=== PATIENT | female | born 2000 | race Two or more races ===

== ENCOUNTER 2018-05-22 20:51 | Emergency (ER) | payer OTHER ==
[~2018-05-22] VITALS: Ht 170.2 cm; Wt 93.0 kg
[2018-05-22] MEDS ORDERED: IV NORMAL SALINE 1000ML BAG 1,000 ML IV SCH (21:15)
--- NOTE | 2018-05-22 21:16 | PHYS DOC ---
Adult General Chief Complaint Chief Complaint: ABDOMINAL PAIN HPI HPI Patient is a 17-year-old female who presents with complaining of upper abdominal pain that started 2 days ago. Patient is 2 weeks . She indicates that pain was only mild initially but has progressively gotten worse and at its worst, was a 10 out of 10 but currently is a 7 out of 10. She indicates that she has had 2 episodes of vomiting. She states that at times the pain radiates into her back. Patient states the pain is worsened with walking and with palpation. She does indicate that symptoms are worsened with eating as well due to the nausea. Review of Systems Review of Systems Constitutional: Denies fever or chills [] Respiratory: Denies cough or shortness of breath [] Cardiovascular: Denies chest pain[] GI: Complains of upper abdominal pain with nausea and vomiting[] : Denies dysuria or hematuria [] Musculoskeletal: Admits to mid back pain[] I All other systems were reviewed and found to be within normal limits, except as documented in this note. Current Medications Current Medications Current Medications Medications (Trade) Dose Ordered Sig/Tami Start Time Stop Time Status Last Admin Dose Admin Info (CONTRAST GIVEN -- Rx MONITORING) 1 each PRN DAILY PRN 05/22/18 21:45 05/24/18 21:44 Iohexol (Omnipaque 300 Mg/ml) 75 ml 1X ONCE 05/22/18 21:45 05/22/18 21:46 DC 05/22/18 22:00 75 ML Ondansetron HCl (Zofran) 4 mg 1X ONCE 05/22/18 21:30 05/22/18 21:31 DC 05/22/18 21:30 4 MG Sodium Chloride 1,000 ml @ 1,000 mls/hr Q1H 05/22/18 21:15 05/22/18 22:14 DC 05/22/18 21:15 1,000 MLS/HR Allergies Allergies Allergies Coded Allergies Type Severity Reaction Last Updated Verified No Known Drug Allergies 05/22/18 No Physical Exam Physical Exam Constitutional: Well developed, well nourished, no acute distress, non-toxic appearance. [] HENT: Normocephalic, atraumatic, bilateral external ears normal, oropharynx moist, no oral exudates, nose normal. [] Eyes: PERRLA, EOMI, conjunctiva normal, no discharge. [] Neck: Normal range of motion, no tenderness, supple, no stridor. [] Cardiovascular:Heart rate regular rhythm, no murmur [] Lungs & Thorax: Bilateral breath sounds clear to auscultation [] Abdomen: Bowel sounds normal, soft, with upper abdominal tenderness. [] Skin: Warm, dry, no erythema, no rash. [] Extremities: No tenderness, no cyanosis, no clubbing, ROM intact, no edema. [] Neurologic: Alert and oriented X 3, normal motor function, normal sensory function, no focal deficits noted. [] Current Patient Data Vital Signs Vital Signs Date Time Temp Pulse Resp B/P (MAP) Pulse Ox O2 Delivery O2 Flow Rate FiO2 05/22/18 23:04 64 18 127/72 (90) 100 05/22/18 21:00 98.2 Room Air 98.2 Lab Values Laboratory Tests Test 05/22/18 21:02 05/22/18 21:03 05/22/18 21:25 05/22/18 21:52 POC Urine HCG, Qualitative Borderline hcg level Urine Collection Type Unknown Urine Color Yellow Urine Clarity Clear Urine pH 6.0 Urine Specific [place] 1.025 Urine Protein Negative mg/dL (NEG-TRACE) Urine Glucose (UA) Negative mg/dL (NEG) Urine Ketones (Stick) Negative mg/dL (NEG) Urine Blood Negative (NEG) Urine Nitrite Negative (NEG) Urine Bilirubin Negative (NEG) Urine Urobilinogen Dipstick 0.2 mg/dL (0.2 mg/dL) Urine Leukocyte Esterase Small (NEG) Urine RBC 0 /HPF (0-2) Urine WBC 1-4 /HPF (0-4) Urine Squamous Epithelial Cells Occ /LPF Urine Bacteria Few /HPF (0-FEW) Urine Mucus Mod /LPF White Blood Count 10.7 x10^3/uL (4.0-11.0) Red Blood Count 4.14 x10^6/uL (3.50-5.40) Hemoglobin 11.3 g/dL (12.0-15.5) L Hematocrit 34.3 % (36.0-47.0) L Mean Corpuscular Volume 83 fL (79-100) Mean Corpuscular Hemoglobin 27 pg (25-35) Mean Corpuscular Hemoglobin Concent 33 g/dL (31-37) Red Cell Distribution Width 14.9 % (11.5-14.5) H Platelet Count 299 x10^3/uL (140-400) Neutrophils (%) (Auto) 59 % (31-73) Lymphocytes (%) (Auto) 32 % (24-48) Monocytes (%) (Auto) 7 % (0-9) Eosinophils (%) (Auto) 2 % (0-3) Basophils (%) (Auto) 1 % (0-3) Neutrophils # (Auto) 6.2 x10^3uL (1.8-7.7) Lymphocytes # (Auto) 3.4 x10^3/uL (1.0-4.8) Monocytes # (Auto) 0.7 x10^3/uL (0.0-1.1) Eosinophils # (Auto) 0.2 x10^3/uL (0.0-0.7) Basophils # (Auto) 0.1 x10^3/uL (0.0-0.2) Sodium Level 137 mmol/L (136-145) Potassium Level 4.0 mmol/L (3.5-5.1) Chloride Level 104 mmol/L (98-107) Carbon Dioxide Level 25 mmol/L (21-32) Anion Gap 8 (6-14) Blood Urea Nitrogen 16 mg/dL (7-20) Creatinine 0.7 mg/dL (0.6-1.0) Estimated GFR (Cockcroft-Gault) 107.8 BUN/Creatinine Ratio 23 (6-20) H Glucose Level 90 mg/dL (70-99) Calcium Level 9.0 mg/dL (8.5-10.1) Total Bilirubin 0.1 mg/dL (0.2-1.0) L Aspartate Amino Transferase (AST) 15 U/L (15-37) Alanine Aminotransferase (ALT) 21 U/L (14-59) Alkaline Phosphatase 106 U/L (46-116) Total Protein 7.1 g/dL (6.4-8.2) Albumin 3.2 g/dL (3.4-5.0) L Albumin/Globulin Ratio 0.8 (1.0-1.7) L Lipase 131 U/L (73-393) Laboratory Tests 05/22/18 21:25 Laboratory Tests 05/22/18 21:52 EKG EKG [] Radiology/Procedures Radiology/Procedures [] Impressions: IMPRESSION: Heterogeneous uterus with probable fibroid in the fundus. No other focal abnormality seen in the abdomen or pelvis. Course & Med Decision Making Course & Med Decision Making Pertinent Labs and Imaging studies reviewed. (See chart for details) [] Dragon Disclaimer Dragon Disclaimer This electronic medical record was generated, in whole or in part, using a voice recognition dictation system. Departure Departure Impression: Primary Impression: Abdominal pain Disposition: HOME, SELF-CARE Condition: STABLE Referrals: NO PCP (PCP) Patient Instructions: Abdominal Pain Additional Instructions: Take prescribed medications as directed and follow-up with your primary care provider in the next few days. Scripts Ondansetron Hcl (ZOFRAN) 4 Mg Tablet 4 MG PO PRN TID, #15 nausea/vomiting Prov: KATARINA SANTOS Jr. DO 05/22/18 Ranitidine Hcl (ZANTAC) 150 Mg Tablet 150 MG PO BID for 7 Days, #14 TAB Prov: KATARINA SANTOS Jr. DO 05/22/18 Problem Qualifiers Primary Impression: Abdominal pain Abdominal location: upper abdomen, unspecified Qualified Codes: R10.10 - Upper abdominal pain, unspecified KATARINA SANTOS Jr. DO May 22, 2018 21:16
[2018-05-22 21:19] LABS: BILIRUBIN,URINE NEGATIVE (NEG); CLARITY,URINE CLEAR; COLOR,URINE YELLOW; NITRITE,URINE NEGATIVE (NEG); PROTEIN,URINE NEGATIVE (NEG-TRACE); UROBILINOGEN,URINE 0.2 mg/dL (0.2 mg/dL)
[2018-05-22 21:27] LABS: BACTERIA,URINE FEW /HPF (0-FEW); RBC,URINE 0 /HPF (0-2); SQUAMOUS EPITHELIAL CELL,UR OCC /LPF
[2018-05-22 21:30] LABS: BASO # 0.1 x10^3/uL (0.0-0.2); BASO % 1 % (0-3); EOS # 0.2 x10^3/uL (0.0-0.7); EOS % 2 % (0-3); HEMATOCRIT 34.3 % (36.0-47.0); HEMOGLOBIN 11.3 g/dL (12.0-15.5); LYMPH # 3.4 x10^3/uL (1.0-4.8); LYMPH % 32 % (24-48); MEAN CORPUSCULAR HEMOGLOBIN 27 pg (25-35); MEAN CORPUSCULAR HGB CONC 33 g/dL (31-37); MEAN CORPUSCULAR VOLUME 83 fL (79-100); MONO # 0.7 x10^3/uL (0.0-1.1); MONO % 7 % (0-9); NEUT # 6.2 x10^3uL (1.8-7.7); NEUT % 59 % (31-73); PLATELET COUNT 299 x10^3/uL (140-400); RED BLOOD COUNT 4.14 x10^6/uL (3.50-5.40); RED CELL DISTRIBUTION WIDTH 14.9 % (11.5-14.5); WHITE BLOOD COUNT 10.7 x10^3/uL (4.0-11.0)
[2018-05-22] MEDS ORDERED: ONDANSETRON PF 4 MG/2 ML VIAL. IV ONE (21:30)
[2018-05-22] MEDS ORDERED: IOHEXOL 300 MG/ML 100ML VIAL. IV ONE (21:45)
[2018-05-22] MEDS ORDERED: CONTRAST GIVEN. MC PRN (21:45)
[2018-05-22 22:05] LABS: CREATININE 0.7 mg/dL (0.6-1.0); GFR 107.8
[2018-05-22 22:11] LABS: ALBUMIN 3.2 g/dL (3.4-5.0); ALBUMIN/GLOBULIN RATIO 0.8 (1.0-1.7); TOTAL BILIRUBIN 0.1 mg/dL (0.2-1.0); TOTAL PROTEIN 7.1 g/dL (6.4-8.2)
--- NOTE | 2018-05-22 23:05 | RAD ---
CT abdomen and pelvis with contrast: Reason for examination: Abdominal pain. Helical images were obtained through the abdomen and pelvis with intravenous administration of 75 cc Omnipaque 300. Reconstruction was performed in sagittal and coronal planes. Exposure: One or more of the following individualized dose reduction techniques were utilized for this examination: 1. Automated exposure control 2. Adjustment of the mA and/or kV according to patient size 3. Use of iterative reconstruction technique. The lung bases are clear. The heart size is normal with no pericardial effusion. No abnormality seen at the liver, gallbladder, pancreas, adrenal glands or spleen. The kidneys show no renal masses, renal calculi, hydronephrosis or evidence of obstructive uropathy. The abdominal aorta and inferior vena cava show no acute abnormalities. No abnormality seen at the appendix. There is a large amount of fecal material in the colon there is no evidence of diverticulosis or diverticulitis. No abnormality seen at the stomach. The small intestinal tract shows no abnormally dilated or thickened loops of small intestine and no bowel obstruction is seen. No abnormality seen at the bladder. The uterus appears somewhat heterogeneous with probable fibroid in the fundus. No adnexal masses are seen. No free fluid is evident. No acute bony abnormalities are seen. IMPRESSION: Heterogeneous uterus with probable fibroid in the fundus. No other focal abnormality seen in the abdomen or pelvis. Electronically signed by: Tonie Taveras MD (05/22/2018 11:01 PM) [facility]
[2018-05-22] MEDS ORDERED: RANI150T21 PO (23:53)
[2018-05-22] MEDS ORDERED: ONDA4TAB7 PO (23:53)
[2018-05-23 00:02] VITALS: BP 120/66
[2018-05-23] MEDS ORDERED: IOHEXOL 300 MG/ML 100ML VIAL. ONE (02:04)
== END 2018-05-23 | disposition home or self-care (01) ==
LOC: ER 20:51
DX: O90.89 Other complications of the puerperium, not elsewhere classified (principal); R10.10 Upper abdominal pain, unspecified; R11.2 Nausea with vomiting, unspecified
CPT/HCPCS: 36415; 74177; 80053; 81001; 81025; 83690; 85025; 87086; 96361; 96374; 99285; J2405; J7030; Q9967

== ENCOUNTER 2018-05-28 07:37 | Emergency (ER) | payer OTHER ==
[~2018-05-28] VITALS: Ht 170.2 cm; Wt 93.0 kg
[~2018-05-28 07:37] MED LIST: ONDA4TAB7 PO; RANI150T21 PO
[2018-05-28] MEDS ORDERED: IV NORMAL SALINE 1000ML BAG 1,000 ML IV ONE (08:00)
[2018-05-28] MEDS ORDERED: ONDANSETRON PF 4 MG/2 ML VIAL. IV ONE (08:15)
[2018-05-28] MEDS ORDERED: FAMOTIDINE 20 MG/2 ML VIAL IVP ONE (08:15)
[2018-05-28] MEDS ORDERED: fentaNYL PF VIAL 100 MCG/2 ML VIAL IV ONE (08:15)
[2018-05-28 08:20] LABS: BASO % 0 % (0-3); EOS # 0.1 x10^3/uL (0.0-0.7); EOS % 1 % (0-3); HEMOGLOBIN 12.3 g/dL (12.0-15.5); LYMPH % 37 % (24-48); MEAN CORPUSCULAR HEMOGLOBIN 27 pg (25-35); MEAN CORPUSCULAR HGB CONC 33 g/dL (31-37); MEAN CORPUSCULAR VOLUME 83 fL (79-100); MONO % 9 % (0-9); NEUT # 5.6 x10^3uL (1.8-7.7); NEUT % 52 % (31-73); PLATELET COUNT 306 x10^3/uL (140-400); RED BLOOD COUNT 4.48 x10^6/uL (3.50-5.40); RED CELL DISTRIBUTION WIDTH 14.7 % (11.5-14.5); WHITE BLOOD COUNT 10.8 x10^3/uL (4.0-11.0)
[2018-05-28 08:23] LABS: CALCIUM 9.2 mg/dL (8.5-10.1); CREATININE 0.9 mg/dL (0.6-1.0); GFR 80.7; POTASSIUM 3.5 mmol/L (3.5-5.1)
[2018-05-28 08:27] LABS: ALBUMIN 3.6 g/dL (3.4-5.0); DIRECT BILIRUBIN 0.1 mg/dL (0.0-0.2); TOTAL BILIRUBIN 0.2 mg/dL (0.2-1.0); TOTAL PROTEIN 8.4 g/dL (6.4-8.2)
--- NOTE | 2018-05-28 08:41 | RAD ---
Indication:Epigastric and right upper quadrant pain. Patient is 19 days . TECHNIQUE: Grayscale, color Doppler and spectral waveform is of the abdomen obtained. COMPARISON:None FINDINGS: The gallbladder is distended without pericholecystic fluid or gallbladder wall thickening. Layering sludge is seen. Shadowing is seen in the gallbladder neck. IVC and aorta are patent. Liver is mildly enlarged measuring 20 cm in longest dimension. Main portal vein is patent with hepatopedal flow. CBD measures 2 mm in diameter and is within normal limits. Right kidney measures 12.8 cm in length without hydronephrosis. Pancreas is not visualized due to overlying bowel gas. IMPRESSION: 1. Mild hepatomegaly. 2. Distended gallbladder with layering sludge and stones. No sonographic findings of acute cholecystitis. Electronically signed by: Marko Griggs DO (05/28/2018 8:37 AM) [facility]
[2018-05-28 09:00] VITALS: BP 101/58
[2018-05-28 09:08] LABS: CLARITY,URINE CLEAR; COLOR,URINE YELLOW
[2018-05-28 09:09] LABS: BACTERIA,URINE FEW /HPF (0-FEW); BILIRUBIN,URINE NEGATIVE (NEG); NITRITE,URINE NEGATIVE (NEG); PH,URINE 7.5; PROTEIN,URINE NEGATIVE (NEG-TRACE); RBC,URINE OCC /HPF (0-2); SQUAMOUS EPITHELIAL CELL,UR FEW /LPF; UROBILINOGEN,URINE 0.2 mg/dL (0.2 mg/dL)
--- NOTE | 2018-05-28 11:19 | PHYS DOC ---
Past Medical History Past Medical History: No Pertinent History Past Surgical History: No Surgical History Alcohol Use: None Drug Use: None Adult General Chief Complaint Chief Complaint: ABDOMINAL PAIN HPI HPI Patient is a 17 year old female who presents with abdominal pain. The patient has been having pain in the epigastrium and right upper quadrant intermittently over the last 3 weeks. She is by about 3 weeks. She had a vaginal delivery without complications. Her pain is worse after she eats. She has had some nausea but no vomiting. She has no chest pain or shortness of breath. She denies any pelvic pain. She does continue to have lochia that is described to be appropriate. Review of Systems Review of Systems Constitutional: Denies fever or chills Eyes: Denies change in visual acuity HENT: Denies nasal congestion Respiratory: Denies cough Cardiovascular: No additional information not addressed in HPI GI: denies vomiting : Denies dysuria or hematuria Musculoskeletal: Denies back pain Integument: Denies rash or skin lesions Neurologic: Denies headache, Endocrine: Denies polyuria All other systems were reviewed and found to be within normal limits, except as documented in this note. Current Medications Current Medications Current Medications Medications (Trade) Dose Ordered Sig/Tami Start Time Stop Time Status Last Admin Dose Admin Famotidine (Pepcid Vial) 20 mg 1X ONCE 05/28/18 08:15 05/28/18 08:16 DC 05/28/18 08:00 20 MG Fentanyl Citrate (Fentanyl 2ml Vial) 75 mcg 1X ONCE 05/28/18 08:15 05/28/18 08:16 DC 05/28/18 08:00 75 MCG Ondansetron HCl (Zofran) 4 mg 1X ONCE 05/28/18 08:15 05/28/18 08:16 DC 05/28/18 07:59 4 MG Sodium Chloride 1,000 ml @ 1,000 mls/hr 1X ONCE 05/28/18 08:00 05/28/18 08:59 DC 05/28/18 07:59 1,000 MLS/HR Allergies Allergies Allergies Coded Allergies Type Severity Reaction Last Updated Verified No Known Drug Allergies 05/22/18 No Physical Exam Physical Exam Constitutional: Well developed, well nourished, no acute distress, non-toxic appearance. [] HENT: Normocephalic, atraumatic, bilateral external ears normal, oropharynx moist, no oral exudates, nose normal. [] Eyes: PERRLA, EOMI, conjunctiva normal, no discharge. [] Neck: Normal range of motion, no tenderness, supple, no stridor. [] Cardiovascular:Heart rate regular rhythm, no murmur [] Lungs & Thorax: Bilateral breath sounds clear to auscultation [] Abdomen: Bowel sounds normal, soft, no tenderness, no masses, no pulsatile masses. [] Skin: Warm, dry, no erythema, no rash. [] Back: No tenderness, no CVA tenderness. [] Extremities: No tenderness, no cyanosis, no clubbing, ROM intact, no edema. [] Neurologic: Alert and oriented X 3, normal motor function, normal sensory function, no focal deficits noted. [] Psychologic: Affect normal, judgement normal, mood normal. [] Current Patient Data Vital Signs Vital Signs Date Time Temp Pulse Resp B/P (MAP) Pulse Ox O2 Delivery O2 Flow Rate FiO2 05/28/18 09:00 70 101/58 (72) 99 Room Air 05/28/18 08:00 16 05/28/18 07:37 97.8 97.8 Lab Values Laboratory Tests Test 05/28/18 07:45 05/28/18 08:42 White Blood Count 10.8 x10^3/uL (4.0-11.0) Red Blood Count 4.48 x10^6/uL (3.50-5.40) Hemoglobin 12.3 g/dL (12.0-15.5) Hematocrit 37.0 % (36.0-47.0) Mean Corpuscular Volume 83 fL (79-100) Mean Corpuscular Hemoglobin 27 pg (25-35) Mean Corpuscular Hemoglobin Concent 33 g/dL (31-37) Red Cell Distribution Width 14.7 % (11.5-14.5) H Platelet Count 306 x10^3/uL (140-400) Neutrophils (%) (Auto) 52 % (31-73) Lymphocytes (%) (Auto) 37 % (24-48) Monocytes (%) (Auto) 9 % (0-9) Eosinophils (%) (Auto) 1 % (0-3) Basophils (%) (Auto) 0 % (0-3) Neutrophils # (Auto) 5.6 x10^3uL (1.8-7.7) Lymphocytes # (Auto) 4.0 x10^3/uL (1.0-4.8) Monocytes # (Auto) 1.0 x10^3/uL (0.0-1.1) Eosinophils # (Auto) 0.1 x10^3/uL (0.0-0.7) Basophils # (Auto) 0.0 x10^3/uL (0.0-0.2) Urine Collection Type Unknown Urine Color Yellow Urine Clarity Clear Urine pH 7.5 Urine Specific [place] 1.020 Urine Protein Negative mg/dL (NEG-TRACE) Urine Glucose (UA) Negative mg/dL (NEG) Urine Ketones (Stick) Negative mg/dL (NEG) Urine Blood Small (NEG) Urine Nitrite Negative (NEG) Urine Bilirubin Negative (NEG) Urine Urobilinogen Dipstick 0.2 mg/dL (0.2 mg/dL) Urine Leukocyte Esterase Trace (NEG) Urine RBC Occ /HPF (0-2) Urine WBC 5-10 /HPF (0-4) Urine Squamous Epithelial Cells Few /LPF Urine Bacteria Few /HPF (0-FEW) Urine Mucus Marked /LPF Sodium Level 139 mmol/L (136-145) Potassium Level 3.5 mmol/L (3.5-5.1) Chloride Level 103 mmol/L (98-107) Carbon Dioxide Level 26 mmol/L (21-32) Anion Gap 10 (6-14) Blood Urea Nitrogen 19 mg/dL (7-20) Creatinine 0.9 mg/dL (0.6-1.0) Estimated GFR (Cockcroft-Gault) 80.7 Glucose Level 108 mg/dL (70-99) H Calcium Level 9.2 mg/dL (8.5-10.1) Total Bilirubin 0.2 mg/dL (0.2-1.0) Direct Bilirubin 0.1 mg/dL (0.0-0.2) Aspartate Amino Transferase (AST) 25 U/L (15-37) Alanine Aminotransferase (ALT) 26 U/L (14-59) Alkaline Phosphatase 130 U/L (46-116) H Total Protein 8.4 g/dL (6.4-8.2) H Albumin 3.6 g/dL (3.4-5.0) Lipase 148 U/L (73-393) POC Urine HCG, Qualitative Hcg negative (Negative) Laboratory Tests 05/28/18 07:45 Laboratory Tests 05/28/18 07:45 EKG EKG [] Radiology/Procedures Radiology/Procedures FINDINGS: The gallbladder is distended without pericholecystic fluid or gallbladder wall thickening. Layering sludge is seen. Shadowing is seen in the gallbladder neck. IVC and aorta are patent. Liver is mildly enlarged measuring 20 cm in longest dimension. Main portal vein is patent with hepatopedal flow. CBD measures 2 mm in diameter and is within normal limits. Right kidney measures 12.8 cm in length without hydronephrosis. Pancreas is not visualized due to overlying bowel gas. IMPRESSION: 1. Mild hepatomegaly. 2. Distended gallbladder with layering sludge and stones. No sonographic findings of acute cholecystitis. Course & Med Decision Making Course & Med Decision Making Pertinent Labs and Imaging studies reviewed. (See chart for details) Patient was seen and examined for abdominal pain. She was given 1 dose of fentanyl and Zofran. These measures did entirely resolve her symptoms. She does have some sludge and stones seen in the gallbladder but no signs for acute cholecystitis. Patient is discharged to home. She is referred to follow-up with Dr. George who I spoke with. He will see her in close follow-up. Patient is advised to avoid fatty foods. No fever today. No acute lab findings. Dragon Disclaimer Dragon Disclaimer This electronic medical record was generated, in whole or in part, using a voice recognition dictation system. Departure Departure Impression: Primary Impression: Symptomatic cholelithiasis Disposition: HOME, SELF-CARE Condition: GOOD Referrals: AYLIN GEORGE MD Patient Instructions: Cholelithiasis Additional Instructions: Call Dr. George's office Wednesday. Specifically tell the office staff that you were seen in the ER and Dr. George was consulted. He wants to see you in the office on Wednesday. REJI CHAPPELL DO May 28, 2018 11:19
== END 2018-05-28 09:49 | disposition home or self-care (01) ==
LOC: ER 07:37
DX: K80.20 Calculus of gallbladder without cholecystitis without obstruction (principal)
CPT/HCPCS: 36415; 76705; 80048; 80076; 81001; 81025; 83690; 85025; 96374; 96375; 99285; J2405; J3010; J7030; S0028

== ENCOUNTER 2018-06-06 09:10 | Day surgery (SDC) | payer OTHER ==
[~2018-06-06] VITALS: Ht 172.7 cm; Wt 81.6 kg
[~2018-06-06 09:10] MED LIST changes: +FERR-36 PO; +HYDROmorphone 2 MG/ML VIAL IV PRN; +LIDOCAINE 1% PF 2 ML VIAL. ID PRN; +MORPHINE SULFATE 2 MG/ML VIAL. IV PRN; +ONDANSETRON PF 4 MG/2 ML VIAL. IV PRN; +PREN1TAB58 PO; +PROCHLORPERAZINE 10 MG/2 ML VIAL. IV PRN; +ceFAZolin 2GM PREMIX 2 GM/50 ML BAG IV ONE; +fentaNYL PF VIAL 100 MCG/2 ML VIAL IV PRN
[2018-06-06 09:47] LABS: U PREG PATIENT POSITIVE (NEG)
[2018-06-06] MEDS: IV RINGERS,LACTATED 1000ML 1,000 ML IV SCH ×2 (09:48→16:01)
[2018-06-06] MEDS ORDERED: SURGICEL HEMOSTAT 4X8 EACH. ONE (10:35)
[2018-06-06] MEDS ORDERED: IOHEXOL 300 MG/ML 100ML VIAL. ONE (10:35)
[2018-06-06] MEDS ORDERED: GLUCAGON,HUMAN RECOMBINANT 1 MG/ML VIAL. ONE (10:35)
[2018-06-06] MEDS ORDERED: BUPIVACAINE-EPI 0.25%-1:200000 50 ML VIAL. ONE (10:35)
[2018-06-06] MEDS ORDERED: LIDOCAINE 2% PF Vial for OR 5 ML VIAL. ONE (11:02)
[2018-06-06] MEDS ORDERED: fentaNYL PF VIAL 100 MCG/2 ML VIAL ONE ×3 (11:02→13:45)
[2018-06-06] MEDS ORDERED: PROPOFOL 20 ML IV ONE ×2 (11:02→13:03)
[2018-06-06] MEDS ORDERED: ROCURONIUM 50 MG/5 ML VIAL. ONE (11:02)
[2018-06-06] MEDS ORDERED: MIDAZOLAM HCL/PF 2 MG/2 ML VIAL. ONE (11:03)
[2018-06-06] MEDS ORDERED: GLYCOPYRROLATE 1 MG/5 ML VIAL. ONE (12:38)
[2018-06-06] MEDS ORDERED: FAMOTIDINE 20 MG/2 ML VIAL ONE (12:43)
[2018-06-06] MEDS ORDERED: NEOSTIGMINE METHYLSULFATE 5 MG/5 ML SYRINGE. ONE (13:16)
[2018-06-06] MEDS ORDERED: SEVOFLURANE 31 TO 60 MINUTES. IH ONE (13:19)
--- NOTE | 2018-06-06 13:21 | RAD ---
Intraoperative cholangiogram, 06/06/2018: HISTORY: Cholecystectomy 3 spot films from surgery are presented for review. 13 seconds of fluoroscopy time was utilized. Contrast has been injected into the cystic duct remnant. There is good flow of contrast into the duodenum at the ampulla. No filling defect is seen in the common duct to suggest a retained calculus. The incompletely opacified intrahepatic ducts are unremarkable. Minimal contrast extravasation at the gallbladder fossa level is probably on a technical basis related to the catheter insertion site in the cystic duct. IMPRESSION: No evidence of a retained biliary tract calculus. Electronically signed by: Bishop Jhonson MD (06/06/2018 1:18 PM) [facility]
[2018-06-06] MEDS: fentaNYL PF VIAL 100 MCG/2 ML VIAL IV PRN ×3 (14:01→14:15)
--- NOTE | 2018-06-06 14:06 | DISCH ---
DISCHARGE INSTRUCTIONS Condition on Discharge Condition on Discharge: Stable Activity After Discharge Activity Instructions for Disc: Activity as tolerated, Avoid exertion Lifting Instructions after Dis: No heavy lifting Driving Instructions after Dis: Do not drive (3-4 days) Diet after Discharge Diet after Discharge: Regular Wound Incision Care Wound/Incision Care: Ice to area for comfort Other wound/incision instructi: february shower Wednesday Follow-Up Follow up with: Bharathi next week AYLIN GEORGE MD Jun 06, 2018 14:06
--- NOTE | 2018-06-06 14:09 | PDOC ---
BRIEF OPERATIVE NOTE Date: Jun 06, 2018 Pre-Op Diagnosis symptomatic cholelithiasis Post-Op Diagnosis same Procedure Performed l/s maame with veena Surgeon Bharathi Cherry Dipper Shannan BHARDWAJ Anesthesia Type: General Blood Loss 10cc IV Fluid 1400cc Specimens Obtained GB Findings supple GB, normal grams Complications none AYLIN GEORGE MD Jun 06, 2018 14:08
--- NOTE | 2018-06-06 14:40 | OP ---
DATE OF SURGERY: 06/06/2018 PREOPERATIVE DIAGNOSIS: Symptomatic cholelithiasis. POSTOPERATIVE DIAGNOSIS: Symptomatic cholelithiasis. PROCEDURE: Laparoscopic cholecystectomy with cholangiograms. SURGEON: Tyrone George MD EYELET OPERATOR: LASHAE Mcmillan. ANESTHESIA: General endotracheal. ESTIMATED BLOOD LOSS: 10 mL. INTRAVENOUS FLUID: 1400 mL. INDICATIONS: The patient is a 17-year-old 1-month female with symptomatic stones, brought for cholecystectomy. OPERATIVE FINDINGS: The liver was smooth and sharp. The gallbladder was supple. There were some omental adhesions along the inferior surface. Cholangiograms were normal. Visual inspection of the remainder of the abdomen failed to reveal obvious abnormalities. DESCRIPTION OF PROCEDURE: The patient brought to the operating suite, given a general endotracheal anesthetic, abdomen prepped and draped in the usual sterile fashion. A supraumbilical incision was infiltrated with local anesthetic, incised and a 5 mm Visiport used to safely gain access into the abdominal cavity. Pneumoperitoneum established. Camera inserted. Inspection carried out with results as noted above. With the table in reverse Trendelenburg rolled to the left, the epigastric, midclavicular, and lateral ports were placed under direct vision. The gallbladder was retracted superolaterally and the cystic duct was carefully exposed with blunt and cautery dissection, taking care to avoid injury to the adjacent bowel. The cystic duct and cystic artery were identified. The duct was clipped on the gallbladder side. Cholangiograms were made. These were normal. In light of this, the catheter was removed. The cystic duct was clipped x 3 and divided, taking care to avoid injury or compromise of the common duct. The cystic artery was clipped x 2 and divided. The gallbladder freed from the bed and placed in an EndoCatch bag. Hemostasis obtained in the fossa with cautery and a piece of Surgicel. No evidence of bile leak seen. Table returned to level. Gallbladder delivered through the epigastric incision. Epigastric incision closed with interrupted 0 Vicryl suture. Intra-abdominal pressure decreased to 6 cm of water. No bleeding from the epigastric closure or from the midclavicular port site after its removal or from the lateral port location where we used an "alligator" grasper. Abdomen decompressed, camera slowly removed, no bleeding seen. Skin incisions closed with subcuticular 4-0 Monocryl. Steri-Strips and sterile dressings applied. The patient awakened from her anesthetic and taken to the recovery room in satisfactory condition. TYRONE GEORGE MD DR: JAMES/ede JOB#: [id number] / [id number]
[2018-06-06] MEDS ORDERED: HYDR-971 PO ×2 (14:56→15:02)
[2018-06-06] MEDS ORDERED: HYDROcodone/APAP 5/325MG 1 TAB TABLET PO ONE (15:00)
[2018-06-06 15:48] VITALS: BP 141/76
--- NOTE | 2018-06-08 10:13 | PATHOLOGY ---
[facility] Accession Number: [id number] . 01 Material submitted: . GALLBLADDER . 01 Clinical history: . Cholecystitis . 02 Diagnosis: Gallbladder, laparoscopic cholecystectomy: - Cholelithiasis. - Chronic cholecystitis. FORMERLY [facility], 1928–1983/06/07/2018 . 02 Comment: There is no evidence of malignancy. . (JPM:mm; 06/07/18) . 02 Electronically signed: . Jaxon Bryan MD, Pathologist NPI- [id number] . 01 Gross description: . The specimen is received in formalin, labeled "De La Cruz, Edith and gallbladder", is a distended 6.7 x 3.5 x 2.5 cm gallbladder. The serosa is smooth, glistening and guy-pink. Opening the gallbladder reveals the lumen filled with yellow-green viscous bile and several irregular, green-yellow calculi ranging from 0.1 cm up to 0.3 cm in greatest dimensions and measuring 0.7 x 0.6 x 0.4 cm in aggregate. The mucosa is guy-yellow and granular. The gallbladder wall is 0.1 cm thick. No discrete masses are identified. Dump Attendant sections are submitted in A1. ([facility]; 06/06/2018) SHS/SHS . 02 Pathologist provided ICD-10: K80.10 . 02 CPT . 907346 [facility]formed at: [facility] [address] [facility] [address], [place] [id number] MD Everett Cornejo MD Phone: [phone] Performed at: 02 [facility] [address], [place] [id number] MD Jaxon Bryan MD Phone: [phone]
== END 2018-06-06 16:24 | disposition home or self-care (01) ==
LOC: SURG 09:10
PROVIDERS: ATTEND Surgery
DX: K80.10 Calculus of gallbladder with chronic cholecystitis without obstruction (principal); Z79.899 Other long term (current) drug therapy; Z98.890 Other specified postprocedural states; Z87.891 Personal history of nicotine dependence; Z82.49 Family history of ischemic heart disease and other diseases of the circulatory system
CPT/HCPCS: 36415; 47563; 74300; 81025; 84702; A7015; J0690; J0780; J2001; J2704; J2710; J3010; J3490; J7030; J7120; Q9967; S0028; 88304; J1610; J2250